=== PATIENT | female | born 1985 | race Caucasian/White ===

== ENCOUNTER 2019-01-10 08:46 | Day surgery (SDC) | payer BC ==
[~2019-01-10 08:46] MED LIST: Lactated Ringers 1,000 ML IV SCH
[2019-01-10] MEDS ORDERED: Sodium Chloride 0.9% 2.5 ML Syringe FLUSH PRN (09:15)
[2019-01-10] MEDS ORDERED: Sodium Chloride 0.9% 10 ML Syringe FLUSH PRN (09:15)
[2019-01-10] MEDS ORDERED: Sodium Chloride 0.9% 10 ML SDV IV PRN (09:15)
[2019-01-10] MEDS ORDERED: Lidocaine 1% 20 ML MDV ONE (09:40)
--- NOTE | 2019-01-10 09:46 | PCM.PREANE ---
Preanesthetic Assessment - Anesthesia/Transfusion/Family Hx Anesthesia History: Prior Anesthesia Without Reaction Family History of Anesthesia Reaction: No Transfusion History: No Prior Transfusion(s) Intubation History: Unknown - Review of Systems General: No Symptoms Pulmonary: No Symptoms Cardiovascular: No Symptoms Gastrointestinal: No Symptoms Neurological: No Symptoms Other: Reports: None - Physical Assessment NPO Status Date: 01/10/19 NPO Status Time: 05:00 O2 Sat by Pulse Oximetry: 95 Respiratory Rate: 20 Vital Signs: Last Vital Signs Temp 36.4 C 01/10/19 09:05 Pulse 85 01/10/19 09:05 Resp 20 01/10/19 09:05 BP 142/90 H 01/10/19 09:05 Pulse Ox 95 01/10/19 09:05 Height: 1.52 m Weight: 81.193 kg ASA Class: 3 Mental Status: Alert & Oriented x3 Airway Class: Mallampati = 2 Dentition: Reports: Normal Dentition Thyro-Mental Finger Breadths: 3 Mouth Opening Finger Breadths: 3 ROM/Head Extension: Full Lungs: Clear to Auscultation, Normal Respiratory Effort Cardiovascular: Regular Rate, Regular Rhythm - Lab Values: Laboratory Last Values WBC 4.88 K/uL (4.0-11.0) 01/10/19 09:15 RBC 4.66 M/uL (4.30-5.90) 01/10/19 09:15 Hgb 13.4 g/dL (12.0-16.0) 01/10/19 09:15 Hct 40.1 % (36.0-46.0) 01/10/19 09:15 MCV 86.1 fL (80.0-98.0) 01/10/19 09:15 MCH 28.8 pg (27.0-32.0) 01/10/19 09:15 MCHC 33.4 g/dL (31.0-37.0) 01/10/19 09:15 RDW Std Deviation 43.4 fl (28.0-62.0) 01/10/19 09:15 RDW Coeff of Andreas 14 % (11.0-15.0) 01/10/19 09:15 Plt Count 235 K/uL (150-400) 01/10/19 09:15 MPV 11.90 fL (7.40-12.00) 01/10/19 09:15 Nucleated RBC % 0.0 /100WBC 01/10/19 09:15 Nucleated RBCs # 0 K/uL 01/10/19 09:15 - Allergies Allergies/Adverse Reactions: Allergies Allergy/AdvReac Type Severity Reaction Status Date / Time naproxen Allergy constipation/abd Verified 01/04/19 12:32 upset tussin Allergy Hives Uncoded 01/04/19 12:32 - Blood Blood Available: No - Anesthesia Plan Pre-Op Medication Ordered: None - Acknowledgements Anesthesia Type Planned: MAC Pt an Appropriate Candidate for the Planned Anesthesia: Yes Alternatives and Risks of Anesthesia Discussed w Pt/Guardian: Yes Pt/Guardian Understands and Agrees with Anesthesia Plan: Yes PreAnesthesia Questionnaire HEENT History: Reports: Other (See Below) Other HEENT History: wears glasses Cardiovascular History: Reports: High Cholesterol, Hypertension Respiratory History: Reports: Sleep Apnea Other Respiratory History: uses CPAP Gastrointestinal History: Reports: None Genitourinary History: Reports: None 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: Musculoskeletal History: Reports: None Neurological History: Reports: None Psychiatric History: Reports: Anxiety, Depression, PTSD, Other (See Below) (h/o drug addiction, in recovery since ) Endocrine/Metabolic History: Reports: Hypothyroidism, Obesity/BMI 30+ Hematologic History: Reports: None Immunologic History: Reports: None Oncologic (Cancer) History: Reports: None Dermatologic History: Reports: None - Past Surgical History Head Surgeries/Procedures: Reports: None GI Surgical History: Reports: None Female Surgical History: Reports: Section (x2), Tubal Ligation Neurological Surgical History: Reports: None Musculoskeletal Surgical History: Reports: None Oncologic Surgical History: Reports: None - SUBSTANCE USE Tobacco Use Within Last Twelve Months: Smokeless Tobacco Recreational Drug Use History: No - HOME MEDS Home Medications: Home Meds Albuterol Sulfate [Albuterol Sulfate Hfa] 1 puff INH ASDIRECTED PRN 01/04/19 [ History] Levothyroxine Sodium [Synthroid] 75 mcg PO DAILY 01/04/19 [History] Lisinopril 10 mg PO DAILY 01/04/19 [History] Sertraline HCl 25 mg PO DAILY 01/04/19 [History] - CURRENT (IN HOUSE) MEDS Current Meds: Current Medications Lactated Ringer's (Ringers, Lactated) 1,000 mls @ 125 mls/hr IV ASDIRECTED MARLEY Last Admin: 01/10/19 09:15 Dose: 125 mls/hr Sodium Chloride (Saline Flush) 10 ml FLUSH ASDIRECTED PRN PRN Reason: Keep Vein Open Sodium Chloride (Saline Flush) 2.5 ml FLUSH ASDIRECTED PRN PRN Reason: Keep Vein Open Sodium Chloride (Normal Saline) 10 ml IV ASDIRECTED PRN PRN Reason: IV Use
[2019-01-10] MEDS ORDERED: Propofol 200 MG/20 ML SDV ONE (09:51)
[2019-01-10] MEDS ORDERED: fentaNYL 100 MCG/2 ML SDV ONE ×2 (09:51→11:09)
[2019-01-10] MEDS ORDERED: Midazolam 1 MG/ML 2 ML SDV ONE (09:51)
[2019-01-10] MEDS ORDERED: Lidocaine 1% with EPINEPHrine 1:100,000 10 ML MDV ONE (10:11)
[2019-01-10] MEDS ORDERED: Promethazine 25 MG/ML SDV IM ONE (11:11)
[2019-01-10] MEDS ORDERED: fentaNYL 100 MCG/2 ML SDV IVPUSH PRN (11:11)
[2019-01-10] MEDS ORDERED: HYDROmorphone 2 MG/ML SDV IVPUSH ONE (11:11)
--- NOTE | 2019-01-10 12:11 | PCM.OPNOTE ---
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 Patient had minimal blood loss and in good condition. Five specimens sent to pathology. <Alicia Estrada - Last Filed: 01/10/19 13:06> - General Post-Op/Procedure Note Operative Procedure(s): LEEP , Colpscopy and excision of right and left labia major wart lesion Findings: EUA showed normal sized anteverted uterus Colposcopy showed acetowhite lesion in the 8- 9 oclock and 2 oclock and ECC region . ECC full visualized Pre Op Diagnosis: PEPPER 3 and Genital wart Post-Op Diagnosis: same Free Text/Narrative:: Intake & Output 01/09/19 01/10/19 01/10/19 22:59 06:59 14:59 Intake Total 1900 Balance 190
--- NOTE | 2019-01-12 08:54 | OR ---
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 2. Genital warts. PROCEDURES: Colposcopy, LEEP procedure and excision of vulva, right and left labial excision. ESTIMATED BLOOD LOSS: 5 mL. INTRAVENOUS FLUID: 900. FINDING: Acetowhite noted at 8 to 9 o'clock position and 2 and 3 o'clock position and also in the endocervical region, which was fully visualized. All sections were also fully visualized with the colposcopy. Then, the right and left labial warts were also identified. DESCRIPTION OF PROCEDURE: The patient was taken to the operating room, where general anesthesia was performed without difficulty. The patient was prepared and draped in the dorsolithotomy position in the [facility]. Insulated speculum was placed into the vagina to expose the cervix. The vagina was painted with acetic acid. The colposcopy was used to visualize the cervix, and the regions of acetowhite were noted. The ECC in the endocervical region was also noted. Then, the loop electrode was used and started from the right to the left to excise a portion of the cervix. Then, an endocervical hat was also taken. Then, the Kevorkian curette was used to get the endocervical canal, which was then followed by a Cytobrush. The cone bed was then controlled with electrocautery and coagulation with a ball electrode. The Monsel's was then placed in cervical bed. Hemostasis was noted. Then, attention was placed to the vulva, where the size 6 punch was used to excise the right in a rotating motion and then detached from the dermis with the aid of an iris scissors. One interrupted stitch was made, and hemostasis was noted. Again, on the left side, punch forceps was used in a circular motion to excise lesion with the aid of an Allis forceps. Then, the specimen was also sent for pathology. Interrupted incision was also done. The patient tolerated the procedure well and was taken to the recovery room in stable condition. LAVON / ERIKA /[id number]
== END 2019-01-10 13:15 | disposition home or self-care (01) ==
LOC: MW.SDS 08:46
PROVIDERS: ATTEND Obstetrics & Gynecology
DX: D06.0 Carcinoma in situ of endocervix (principal); D28.0 Benign neoplasm of vulva; I10 Essential (primary) hypertension; F17.290 Nicotine dependence, other tobacco product, uncomplicated; E66.9 Obesity, unspecified; Z68.35 Body mass index [BMI] 35.0-35.9, adult; F41.9 Anxiety disorder, unspecified; E78.00 Pure hypercholesterolemia, unspecified; E03.9 Hypothyroidism, unspecified; F32.9 Major depressive disorder, single episode, unspecified; Z99.89 Dependence on other enabling machines and devices; Z79.890 Hormone replacement therapy; Z79.899 Other long term (current) drug therapy; Z88.6 Allergy status to analgesic agent; Z88.8 Allergy status to other drugs, medicaments and biological substances
CPT/HCPCS: 36415; 56605; 56606; 57460; 84703; 85027; J2250; J2704; J3010; J7120; 88305; 88307; J2001

== ENCOUNTER 2025-02-12 15:44 | Emergency (ER) | payer BC, OTHER ==
[2025-02-12 16:29] LABS: BASOPHILS ABSOLUTE AUTO 0.03 K/uL (0.00-0.20); BASOPHILS PERCENT AUTO 0.7 % (0.0-1.0); EOSINOPHILS ABSOLUTE AUTO 0.04 K/uL (0.00-0.45); HEMATOCRIT 39.2 % (37.0-47.0); HEMOGLOBIN 12.5 g/dL (12.0-16.0); IMMATURE GRAN ABSOLUTE AUTO 0.01 K/uL (0.00-0.05); IMMATURE GRAN PERCENT AUTO 0.2 % (0.0-0.4); LYMPHOCYTES ABSOLUTE AUTO 1.38 K/uL (1.00-4.80); LYMPHOCYTES PERCENT AUTO 32.9 % (24.0-44.0); MEAN CORPUSCULAR HEMOGLOBIN 27.8 pg (28.0-32.0); MEAN CORPUSCULAR HGB CONC 31.9 g/dL (32.0-36.0); MEAN CORPUSCULAR VOLUME 87.3 fL (83.0-99.0); MEAN PLATELET VOLUME 10.9 fL (9.4-12.3); MONOCYTES ABSOLUTE AUTO 0.28 K/uL (0.00-0.80); MONOCYTES PERCENT AUTO 6.7 % (0.0-8.0); NEUTROPHILS ABSOLUTE AUTO 2.45 K/uL (1.80-7.70); NEUTROPHILS PERCENT AUTO 58.5 % (41.0-71.0); PLATELET COUNT,PLT 212 K/uL (150-400); RED BLOOD CELL COUNT 4.49 M/uL (4.10-5.30); WHITE BLOOD CELL COUNT,WBC 4.19 K/uL (3.9-11.3)
[2025-02-12 17:05] LABS: ALBUMIN 3.9 g/dL (3.4-5.0); BILIRUBIN TOTAL 0.3 mg/dL (0.2-1.0); CALCIUM 8.4 mg/dL (8.5-10.1); CARBON DIOXIDE,CO2 26.3 mmol/L (21.0-32.0); CREATININE 0.9 mg/dL (0.6-1.0); EST CRCL DRUG DOSING (CG) 59.09 mL/min; MAGNESIUM 1.9 mg/dL (1.8-2.4); POTASSIUM,K 3.4 mmol/L (3.5-5.1); PROTEIN TOTAL,TP 7.7 g/dL (6.4-8.2); TSH ULTRASENSITIVE 6.5 uIU/mL (0.36-3.74)
[2025-02-12 17:23] LABS: T4 FREE 0.96 ng/dL (0.76-1.46)
[2025-02-12] MEDS: LORazepam 0.5 MG Tab PO PRN (17:55)
== END 2025-02-12 18:09 | disposition home or self-care (01) ==
LOC: MW.ED 15:44
DX: F41.0 Panic disorder [episodic paroxysmal anxiety] (principal); I10 Essential (primary) hypertension; E03.9 Hypothyroidism, unspecified; E66.9 Obesity, unspecified; Z68.28 Body mass index [BMI] 28.0-28.9, adult; Z88.8 Allergy status to other drugs, medicaments and biological substances; Z79.51 Long term (current) use of inhaled steroids; Z79.890 Hormone replacement therapy; Z79.899 Other long term (current) drug therapy
CPT/HCPCS: 36415; 71045; 80053; 83690; 83735; 83880; 84439; 84443; 84484; 84703; 85025; 85379; 93005; 99285; A9270; 93010; 99284

== ENCOUNTER 2025-06-20 09:04 | Emergency (ER) | payer OTHER | END 2025-06-20 11:48 | disposition home or self-care (01) | LOC: MW.ED 09:04 | DX: M25.561 Pain in right knee (principal); I10 Essential (primary) hypertension; E03.9 Hypothyroidism, unspecified; E66.9 Obesity, unspecified; Z79.890 Hormone replacement therapy; Z75.3 Unavailability and inaccessibility of health-care facilities; Z79.899 Other long term (current) drug therapy; Z79.51 Long term (current) use of inhaled steroids; Z88.8 Allergy status to other drugs, medicaments and biological substances; Z68.31 Body mass index [BMI] 31.0-31.9, adult | CPT/HCPCS: 93971; 99283; A9270; 99282 ==